=== PATIENT | male | born 1995 | race Two or more races ===

== ENCOUNTER 2018-10-03 14:36 | Emergency (ER) | payer SELFPAY ==
--- NOTE | 2018-10-03 15:19 | ER Document Report ---
ED Medical Screen (RME) - General Chief Complaint: Laceration Stated Complaint: RIGHT LEG LACERATION Time Seen by Provider: 10/03/18 15:18 Notes: Patient cut the inner aspect of his right leg on a piece of ciara metal. He has a 7-8 cm laceration of the inner aspect of the distal right thigh. Adipose tissue is exposed but no indication of muscle involvement. Patient has full range of motion of his foot and ankle and can walk without any difficulty. TRAVEL OUTSIDE OF THE [place] IN LAST 30 DAYS: No - Related Data Allergies/Adverse Reactions: No Known Allergies Allergy (Verified 10/03/18 14:37) Past Medical History - Social History Chew tobacco use (# tins/day): No Frequency of alcohol use: Social Drug Abuse: None Renal/ Medical History: Denies: Hx Peritoneal Dialysis Physical Exam - Vital signs Vitals: Temp Pulse Resp BP Pulse Ox 98.5 F 90 16 130/75 H 97 10/03/18 14:38 10/03/18 14:38 10/03/18 14:38 10/03/18 14:38 10/03/18 14:38 Course - Vital Signs Vital signs: Temp Pulse Resp BP Pulse Ox 98.5 F 90 16 130/75 H 97 10/03/18 14:38 10/03/18 14:38 10/03/18 14:38 10/03/18 14:38 10/03/18 14:38
[2018-10-03] MEDS ORDERED: LIDOCAINE 1% INJ-PF (10 MG/ML) 30 ML SDV INJ ONE (16:28)
[2018-10-03] MEDS ORDERED: LIDOCAINE 1%/EPINEPHRINE INJ 20 ML VIAL INJ ONE (16:30)
[2018-10-03] MEDS ORDERED: DIPH/PERTUSS(ACELL)/TETANUS VAC/PF 0.5 ML SYR (>=10YO) IM ONE (17:20)
--- NOTE | 2018-10-03 18:17 | ER Document Report ---
ED Wound - General Chief Complaint: Laceration Stated Complaint: RIGHT LEG LACERATION Time Seen by Provider: 10/03/18 15:18 Mode of Arrival: Ambulatory Information source: Patient Notes: Patient is a 23-year-old male comes emergency room complaining of a laceration to his right inner leg distal portion of the thigh and just before the knee. Patient states he was playing soccer he went to kick the ball missed the ball and he hit a metal bar that they were using as a goal that was sharp. States it has a small laceration on that area just described. He denies any other injuries or any other problems. Last tetanus shot was "I do not remember". He denies any other medical problems is currently on no medications. He works as a internal investigator as a subcontractor. TRAVEL OUTSIDE OF THE [place] IN LAST 30 DAYS: No - HPI Patient complains to provider of: Laceration Occurred: Just prior to arrival Onset/Duration: Sudden Quality of pain: Achy Severity: Moderate Pain Level: 3 Context: Injury Skin Temperature: Warm Skin Color: Normal Capillary refill: < 3 seconds Sensations intact: Yes Distal pulses present: Yes Associated Symptoms: Bleeding - Related Data Allergies/Adverse Reactions: No Known Allergies Allergy (Verified 10/03/18 14:37) Past Medical History - General Information source: Patient - Social History Smoking Status: Current Every Day Smoker Cigarette use (# per day): Yes - Only 3-4 cigarettes a day Chew tobacco use (# tins/day): No Smoking Education Provided: Yes Frequency of alcohol use: Social Drug Abuse: None Occupation: [employer] Lives with: Alone Family History: Reviewed & Not Pertinent Patient has suicidal ideation: No Patient has homicidal ideation: No Renal/ Medical History: Denies: Hx Peritoneal Dialysis Review of Systems - Review of Systems Constitutional: No symptoms reported EENT: No symptoms reported Cardiovascular: No symptoms reported Respiratory: No symptoms reported Gastrointestinal: No symptoms reported Genitourinary: No symptoms reported Male Genitourinary: No symptoms reported Musculoskeletal: No symptoms reported Skin: See HPI, Other - Laceration Hematologic/Lymphatic: No symptoms reported Neurological/Psychological: No symptoms reported -: Yes All other systems reviewed and negative Physical Exam - Vital signs Vitals: Temp Pulse Resp BP Pulse Ox 98.5 F 90 16 130/75 H 97 10/03/18 14:38 10/03/18 14:38 10/03/18 14:38 10/03/18 14:38 10/03/18 14:38 Interpretation: Hypertensive - Notes Notes: PHYSICAL EXAMINATION: GENERAL: Well-appearing, well-nourished and in no acute distress. EYES: Pupils equal round and reactive to light, extraocular movements intact, sclera anicteric, conjunctiva are normal. NECK: Normal range of motion, supple without lymphadenopathy LUNGS: Breath sounds clear to auscultation bilaterally and equal. No wheezes rales or rhonchi. HEART: Regular rate and rhythm without murmurs Musculoskeletal: Normal range of motion, area of concern is patient's right inner leg approximately 2 inches above the knee and into the distal portion of the thigh. There is an 8 cm long by 3 cm wide gash. It is apparently only into the adipose tissue since patient is a very large male. Bleeding is minimal. Patient has full flexion extension of the leg and not has also positive active straight leg raise without any discomfort or pain. Patient can also rotate his foot inward and outward without any difficulties. He has good dorsalis pedal pulse. He has good flexion and extension of the ankle against resistance. Also patient has good strength against resistance at the bent knee. NEUROLOGICAL: Normal speech, normal gait. Normal sensory, motor exams PSYCH: Normal mood, normal affect. SKIN: See above under musculoskeletal the laceration itself was slightly ragged and oblong. But there was no sign of any type of tendon involvement or muscle involvement under a bloodless field. Course - Re-evaluation Re-evalutation: 10/03/18 18:17 Patient's course of stay in the emergency room was benign. This was after an extensive cleaning up of his wound with Hibiclens scrubs and extensive amount of flushing with thousand mL's of normal saline. Patient tolerated the procedure without any problems. We applied 16 total sutures combination of simple interrupted horizontal and vertical mattresses. - Vital Signs Vital signs: Temp Pulse Resp BP Pulse Ox 98.5 F 90 16 130/75 H 97 10/03/18 14:38 10/03/18 14:38 10/03/18 14:38 10/03/18 14:38 10/03/18 14:38 Procedures - Laceration/Wound Repair Right Thigh Time completed: 18:18 Wound length (cm): 8 Wound's Depth, Shape: Linear, Other - Adipose tissue mostly. It was moderately deep approximately a centimeter to 2 cm Laceration pre-procedure: Sterile PPE donned, Sterile drapes applied, Shur- Clens applied Anesthetic type: 1% Lidocaine w/epi Volume Anesthetic (mLs): 20 Wound explored: Clean Irrigated w/ Saline (mLs): 1,000 Wound Debrided: Moderate Wound Repaired With: Sutures Suture Size/Type: 3:0 Number of Sutures: 16 Layer Closure?: No - Ears Post-procedure wound care: Sterile dressing applied Post-procedure NV exam normal: Yes Complications: No Discharge - Discharge Clinical Impression: Laceration of right thigh without complication Qualifiers: Encounter type: initial encounter Qualified Code(s): S71.111A - Laceration without foreign body, right thigh, initial encounter Condition: Stable Disposition: HOME, SELF-CARE Instructions: Antibiotic Ointment Protection ([facility]), Laceration Care ([facility]), Oral Narcotic Medication ([facility]), Prophylactic Antibiotic ([facility]), Soap Cleansing ( [facility]), Tetanus Immunization Given ([facility]) Additional Instructions: As I explained to you no matter how many sutures I put into this area because it is under a lot of stress you can have the sutures pulled through the skin and at that point there is nothing we can do for it. Monitor how it is looking to change the dressing at least twice a day clean it with just warm soapy water and then let it air dry and then apply the dressing. Take all of the antibiotics. Return to ER in 10-12 days for suture removal however remember what I said and return sooner if it does not appear to be healing well. We have no problem and taken a look at the wound at any time if you do not think it looks like it is healing accordingly. Stay away from [place] bath tubs and dirty water if possible and you may take a shower but again air dry. Prescriptions: Cephalexin Monohydrate [Keflex 500 mg Capsule] 500 mg PO Q6H 10 Days #40 capsule Hydrocodone/Acetaminophen [[place] 7.5-325 mg Tablet] 1 tab PO Q6 PRN #12 tablet PRN Reason:
[2018-10-03 18:29] VITALS: BP 120/48
== END 2018-10-03 18:36 | disposition home or self-care (01) ==
LOC: ER 14:36
DX: S71.111A Laceration without foreign body, right thigh, initial encounter (principal); W22.8XXA Striking against or struck by other objects, initial encounter; Y93.66 Activity, soccer; F17.210 Nicotine dependence, cigarettes, uncomplicated
CPT/HCPCS: 99283; 90471; 90715; 12004; J3490